=== PATIENT | male | born 2005 | race Caucasian/White ===

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

== ENCOUNTER 2025-01-12 14:00 | Emergency (ER) | payer SELFPAY ==
[2025-01-12 14:10] VITALS: BP 124/59; PULSE 83; RESP 16; TEMP 36.9; O2SAT 99
--- NOTE | 2025-01-12 14:18 | ED.URI ---
HPI - URI/Sore Throat General Chief Complaint: Upper Respiratory Infection Stated Complaint: Sore Throat/Cough Time Seen by Provider: 01/12/25 14:20 Source: patient, RN notes reviewed and old records reviewed Mode of arrival: ambulatory Limitations: no limitations History of Present Illness HPI Narrative: 19 year old male presents to express care with complaints of harsh nonproductive cough since Friday and some sore throat. Patient reports that he has had intermittent fevers with highest noted of 101F. Patient reports that he has taken some Ibuprofen and also has used his inhalers. He states that it has improved some but is continuing. Patient reports no acute shortness of breath does have history of asthma. Patient is afebrile today. MD elicited complaint: cough and sore throat Pertinent past history: asthma and other (tobacco use) Onset (ago): day(s) (5) Severity: moderate Able to tolerate fluids by mouth: No Treatments prior to arrival: other (inhaler) Related Data Home Medications ?Medication ?Instructions ?Recorded ?Confirmed ?Last Taken ?Type albuterol sulfate 90 mcg/actuation inhalation 01/12/25 Unknown History aerosol inhaler budesonide-formoterol HFA 160 inhalation 01/12/25 Unknown History mcg-4.5 mcg/actuation aerosol inhaler (Symbicort) epinephrine 0.3 mg/0.3 mL 01/12/25 Unknown History injection, auto-injector famotidine 20 mg tablet mg 01/12/25 Unknown History Allergies Allergy/AdvReac Type Severity Reaction Status Date / Time No Known Allergies Allergy Verified 01/12/25 14:01 Review of Systems Review of Systems: CONSTITUTIONAL: Positive malaise, some chills, sweats, or fever. EYES: Denies visual changes, redness, or discharge. ENT: Reports rhinorrhea, congestion, sinus pain,no otalgia and positive for sore throat. CARDIOVASCULAR: Denies chest pain, palpitations, or edema. RESPIRATORY: Reports harsh nonproductive cough.? Denies acute dyspnea. GASTROINTESTINAL: Denies abdominal pain, nausea, vomiting, diarrhea SKIN: Denies rash or itching. MUSCULOSKELETAL: Denies myalgia. NEUROLOGIC: Denies headache. All systems reviewed & are unremarkable except as noted in HPI and below PMFSH Past Medical History Medical History (Updated 01/14/25 @ 16:31 by Rose Carrington NP) History of streptococcal sore throat Asthma Social History Social History Smoking status: Current every day smoker Tobacco type: cigarettes Living arrangements: with family Gender identity (if verbalized by the patient): Male Comments At time of signature, agree with nursing past medical, surgical, social and family history. There is no relevant family history pertinent to the presenting complaint Exam Narrative: GENERAL: Well-appearing, well-nourished, and in no acute distress. HEAD: Normocephalic EYES: PERRLA, conjunctivae clear ENT: Nares clear, turbinates edematous and erythematous, clear discharge. Mucous membranes moist. TM pearly zamora with dull light reflex bilaterally; no tragal tenderness. Oropharynx erythematous without lesions. Tonsils red not enlarged and without exudate, no drooling, some hoarseness, no trismus, uvula midline. some post nasal drainge NECK: Supple. No lymphadenopathy CHEST: Clear to auscultation, breath sounds equal. No wheezing, rhonchi, rales, or stridor. No respiratory distress, speaks in full sentences.nonproductive cough no dyspnea reported or any tachypnea noted,SAO2 99% on room air HEART: Regular rate and rhythm. No murmur heard. SKIN: Warm, dry, no rash. NEURO: Alert and oriented x3. PSYCH: Normal mood and affect Course Course Emergency Course: Patient is aware of diagnosis, understands and agrees to treatment plan.? Anticipatory guidance given.? Patient agrees to follow-up as directed and is aware of reasons to seek care at the emergency department. Portions of this record may have been created with voice recognition software Level of Care: Express Care Visit Vital Signs Vital signs: Vital Signs Temperature 36.9 C 01/12/25 14:10 Pulse Rate 83 01/12/25 14:10 Respiratory Rate 16 01/12/25 14:10 Blood Pressure 124/59 L 01/12/25 14:10 Pulse Oximetry 99 01/12/25 14:10 Oxygen Delivery Room Air 01/12/25 14:10 Temperature 36.9 C 01/12/25 14:10 Pulse Rate 83 01/12/25 14:10 Respiratory Rate 16 01/12/25 14:10 Blood Pressure 124/59 L 01/12/25 14:10 Pulse Oximetry 99 01/12/25 14:10 Oxygen Delivery Room Air 01/12/25 14:10 Reviewed MDM - URI/Sore Throat MDM Narrative Medical decision making narrative: Differential diagnosis considered: Castillo virus, strep pharyngitis, allergic rhinitis, upper respiratory tract infection, sinusitis, rhinosinusitis, nasopharyngitis. viral pharyngitis, otitis media, otitis externa, pneumonia, bronchitis, viral cough syndrome, viral syndrome, and influenza.? Exam findings show no acute concerns or changes; patient is non-toxic appearing and is in no distress.? Patient is appropriate for outpatient treatment and follow-up. Medical Records Attestation: I reviewed the patient's medical records. Lab Data Attestation: I reviewed the patient's lab results. Lab results narrative: Influenza A negative Influenza B negative, COVID antigen negative, Strep screen negative, culture sent Labs: Lab Results 01/12/25 Range/Units 14:44 POC Influenza A Ag Negative (Negative) POC Influenza B Ag Negative (Negative) POC SARS CoV-2 Ag Negative (Negative) POC Grp A Strep Screen Negative (Negative) reviewed Critical Care Time Critical Care Time Critical Care Time: No Discharge Plan Discharge Clinical Impression: Upper respiratory virus Patient Disposition: Home, Self-Care Condition: Stable Instructions: Antibiotic Form, Upper Respiratory Infection (ED) Additional Instructions: INCREASE FLUIDS ESPECIALLY JUICES AND WATER [id number] COUGH AND COLD MEDICINE OF YOUR CHOICE FOR YOUR SYMPTOMS COUGH TABLETS DIRECTED FOR COUGH--DO NOT BITE, CHEW OR SUCK ON--SWALLOW WHOLE CONTINUE YOUR INHALER/NEBULIZER DIRECTED STEROIDS DIRECTED--TAKE WITH FOOD HEAT TO THE FACE 20-30 MINUTES 4-6 TIMES A DAY FOR PAIN SALT WATER GARGLES, THROAT LOZENGES OR THROAT SPRAYS DESIRED IF YOUR SYMPTOMS PERSIST, CHANGE OR WORSEN SIGNIFICANTLY BEFORE YOU CAN CONTACT YOUR PERSONAL PHYSICIAN THEN PLEASE, WITHOUT DELAY, GO TO THE EMERGENCY DEPARTMENT FOR FURTHER EVALUATION. FOLLOW-UP WITH PCP IN 7-10 DAYS OR SOONER IF NEEDED YOUR STREP TEST TODAY WAS NEGATIVE. A THROAT CULTURE WILL BE SENT TO THE LABORATORY FOR FURTHER TESTING. IF THE TEST IS POSITIVE, YOU WILL RECEIVE A PHONE CALL WITHIN 48 HOURS AND AN APPROPRIATE ANTIBIOTIC WILL BE INITIATED AT THAT TIME. Patient Language: East Timorese Prescriptions: New prednisone 20 mg tablet 40 mg PO DAILY 5 Days Qty: 10 0RF benzonatate 200 mg capsule 200 mg PO TID PRN (Reason: cough) Qty: 20 0RF No Action famotidine 20 mg tablet epinephrine 0.3 mg/0.3 mL auto-injector albuterol sulfate 90 mcg/actuation HFA aerosol inhaler INHALATION budesonide-formoterol [Symbicort] 160-4.5 mcg/actuation HFA aerosol inhaler INHALATION Follow-up/Referrals: UNKNOWN,DOCTOR [Primary Care Provider] - Stand Alone Forms: Work/School Release IP Time of Disposition: 15:09 Quality Cassius Coma Scale Eyes: Open Verbal: Oriented and Alert Motor: Follows Commands Cassius Coma Total Score: 15
[2025-01-12 14:46] LABS: EDCOVIDSCREEN Negative (Negative)
[2025-01-12 14:47] LABS: EDINFLUASCREEN Negative (Negative); EDINFLUBSCREEN Negative (Negative); EDSTREPNEGPOS1 Negative (Negative)
--- OUTSIDE RECORDS SUMMARY | 2025-01-12 15:55 | XMS_ITS | Encounter Summary ---
Author Organization [facility] Address [address] [place] [address] Phone Care Team Providers Care Manager Deli Name Role Phone Debora Black [facility] Primary Care Provi solomon Encounter Details Date Type Department Care Team (Late st Contact Info) Description 05/06/2024 Telephone [facility] Orthopaedic Surgery [address] [place] [phone] Myla Pop Social History Tobacco Use Types Packs/Day Years Used Date Smoking Tobacco: Every Day Cigarettes Smokeless Tobacco: Never Alcohol Use Standard Drinks/Week Comments Yes 0 (1 standard drink = 0.6 oz pur e alcohol) sometimes AUDIT-C Answer Date Recorded Q1: How often do you have a drink containing alc ohol? 2-4 times a month 04/23/2024 Q2: How many drinks containi ng alcohol do you have on a typical day when you are drinking? 1 or 2 04/23/2024 Q3: How often do you have si x or more drinks on one occasion? Never 04/23/2024 PHQ-2 Answer Date Recorded PHQ-2 Total Score (If total score is 3 or more points, staff should administer the PHQ-9) 0 04/23/2024 Personal Safety Answer Date Recorded Have you ever been in or are you currently in a harmful physical or emotional relationship or is someone making you feel afraid or unsafe? 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 Gender Identity Not on file Sexual Orientation Not on file documented as of this encounter Plan of Treatment Not on file documented as of this encounter Visit Diagnoses Not on filedocumented in this encounter Additional Health Concerns Infection Onset Date Last Indicated Resolved Time COVID: Suspected 09/26/2024 09/26/2024 09/26/2024 4:04 PM TERMINAL OPERATIONS MANAGER documented as of this encounter Care Teams Manager Deli Relationship Specialty Start Date End Date Debora Black DNP [address] [place] [id number] PCP - General Family Medicine 04/15/24 documented as of this encounter
--- OUTSIDE RECORDS SUMMARY | 2025-01-12 15:55 | XMS_ITS | Clinical Summary ---
Author Organization [place] [id number] Address [address] [place] [address] Care Team Providers Care Crime Scene Examiner Name Role Phone Debora Black [facility] Primary Care Provi solomon Allergies Active Allergy Reactions Criticality Noted Date Comments Hornet Venom Swelling Medium 07/29/2023 Medications ibuprofen (ADVIL,MOTRIN) 800 mg tablet Take 1 tablet (800 mg total) by mouth every 6 (six) hours as needed for pain Active lidocaine 5 % gel Apply a thin layer to left knee up to 6 times daily for pain 30 g 4 Active diclofenac sodium 3 % gel Apply 1 Application topically 2 (two) times a day 100 g 4 Active albuterol HFA (PROVENTIL HFA,VENTOLIN HFA,PROAIR HFA) 90 mcg/actuation inhalerIndicatio ns:Moderate persistent asthma without complication Inhale 2 puffs every 4 (four) hours as needed for wheezing or shortness of breath Through spacer 2 each 1 4 Active budesonide-formo teroL (Symbicort) 160-4.5 mcg/actuation inhalerIndicatio ns:Maintenance Therapy for Asthma Inhale 2 puffs 2 (two) times a day Rinse mouth with water after use. Do not swallow. 3 each 1 4 Active EPINEPHrine (EpiPen) 0.3 mg/0.3 mL auto-injection syringeIndicatio ns:Anaphylaxis Inject 0.3 mL (0.3 mg total) into the muscle as instructed as needed for anaphylaxis 2 each 4 Active famotidine (PEPCID) 20 mg tabletIndication s:Heartburn,Hear tburn Prevention Take 1 tablet (20 mg total) by mouth 2 (two) times a day 60 tablet 1 4 04/23/20 25 Active amoxicillin-clav ulanate (AUGMENTIN) 875-125 mg per tablet Take 1 tablet by mouth every 12 (twelve) hours 14 tablet 4 Active Active Problems Problem Noted Date Diagnosed Date Acute medial meniscus tear of left knee 05/21/20 24 Acute pain of left knee 04/23/2024 Assessment & Plan (04/23/2024 11:30 AM CDT): Managed by Ortho MRI scheduled for today Try diclofenac or lidocaine gel for pain as needed Keep leg elevated as much as you can Keep brace on Apply ice for swelling Mild intermittent asthma 04/23/2024 Gastroesophageal reflux disease without esophagi tis 04/23/2024 Assessment & Plan (04/23/2024 11:26 AM CDT): Famotidine refilled Recommend working on dietary changes F/u as needed 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 Screen for STD (sexually transmitted disease) Assessment & Plan (04/23/2024 11:32 AM CDT): Labs ordered Recommend using protection at all times History of COVID-19 12/18/2020 Overview (10/04/2021): Lost taste and smell, never tested; assumed positive Oppositional defiant disorder 07/02/2019 ADHD 07/02/2019 Asthma Assessment & Plan (04/23/2024 11:28 AM CDT): Uncontrolled Start Symbicort inhaler twice daily as prescribed Reviewed medication and side effects Use spacer device to deliver medication Albuterol refilled. Discussed overuse of albuterol Recommend all smoking cessation, aka STOP SMOKING. F/u in 1 month Resolved Problems Problem Noted Date Diagnosed Date Resolved Date Closed fracture of mandible ([facility]) 07/04/2014 04/23/2024 Overview (04/23/2024): Left jaw Immunizations Immunization Administration Dates Next Due DTaP 05/04/2010,03/17/2006,2005 ,2005 DTaP / Hep B / IPV 2005 HPV9 08/03/2019 Hep A, Ped Unspecified 05/04/2010 Hep A, Pediatric 08/01/2016 Hep B / HiB 03/17/2006,2005 Hep B Vaccine 03/17/2006,2005 HiB 2005 Hib (HbOC) 2005 IPV 05/04/2010,2005,2005 Influenza LAIV (Nasal) 2005 Influenza Nasal, Unspecified 2005 Influenza, Unspecified 08/17/2023(Deferred: Delphine ent Refused) MMR 05/04/2010,03/17/2006 Meningococcal MCV4P (Menactra) 10/30/2021,2015 Pneumococcal Conjugate 7-Valent 03/17/2006,09/17,2005,2005 Tdap 07/29/2023,08/01/2016 Varicella 05/04/2010,03/17/2006 Surgical History Surgery Date Site/Laterality Comments MANDIBLE FRACTURE SURGERY Medical History Medical History Date Comments Asthma Closed fracture of mandible ([facility] ([facility]) 06/17 Left jaw Family History Medical History Relation Name Comments Asthma Father COPD Father Diabetes Maternal Grandfather Heart disease Maternal Grandfather COPD Maternal Grandmother Lung cancer Maternal Grandmother Asthma Mother Asthma Other Breast cancer Paternal Grandmother Asthma Sister Relation Name Status Comments Father Maternal Grandfather Maternal Grandmother Mother Other Paternal Grandmother Sister Social History Tobacco Use Types Packs/Day Years Used Date Smoking Tobacco: Every Day Cigarettes Smokeless Tobacco: Never Tobacco Cessation:Ready to Q uit: Not Asked; Counseling Given: Not Answered Alcohol Use Standard Drinks/Week Comments Yes 0 [...] making you feel afraid or unsafe? 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 Gender Identity Not on file Sexual Orientation Not on file Obstetrics History Growth Chart Information Age Height Weight [id number] th Percentile BMI Percentile Head Circum Head Circum Percentile Date 19 years 180.3 cm (5' 11 ) 65.8 kg (145 lb) 15.76%* 2023 19 years 180.3 cm (5' 11 ) 65.8 kg (145 lb) 15.77%* 2023 19 years 180.3 cm (5' 10.98 ) 70 kg (154 lb 5.2 oz) 34.07%* 2023 19 years 180.3 cm (5' 11 ) 62.5 kg (137 lb 12.6 oz) 7.30%* 2023 19 years 180 cm (5' 10.87 ) 62 kg (136 lb 11 oz) 6.75%* 2023 19 years 180.3 cm (5' 11 ) 63.4 kg (139 lb 12.4 oz) 9.81%* 2023 19 years 180.3 cm (5' 11 ) 64.9 kg (143 lb) 14.86%* 2023 19 years 180.3 cm (5' 11 ) 63.5 kg (140 lb) 10.80%* 2023 19 years 180.3 cm (5' 11 ) 63.6 kg (140 lb 3.4 oz) 11.10%* 2023 19 years 180.3 cm (5' 11 ) 63.7 kg (140 lb 6.9 oz) 11.47%* 2023 18 years 180.3 cm (5' 11 ) 68 kg (150 lb) 29.71%* 2023 18 years 180.3 cm (5' 11 ) 65.3 kg (143 lb 15.4 oz) 19.09%* 2022 18 years 180.3 cm (5' 11 ) 68 kg (150 lb) 32.84%* 2022 18 years 180.3 cm (5' 11 ) 63.5 kg (140 lb) 15.97%* 2022 17 years 180.3 cm (5' 11 ) 63.8 kg (140 lb 10.5 oz) 18.84%* 2022 17 years 180.3 cm (5' 11 ) 63.5 kg (140 lb) 18.84%* 2022 17 years 68 kg (150 lb) 2021 17 years 180.3 cm (5' 11 ) 62.1 kg (136 lb 14.5 oz) 15.16%* 2021 17 years 60.6 kg (133 lb 9.6 oz) 2021 17 years 180.3 cm (5' 11 ) 56 kg (123 lb 7.3 oz) 1.86%* 2021 17 years 177.8 cm (5' 10 ) 59.7 kg (131 lb 9.8 oz) 13.37%* 2021 17 years 180.3 cm (5' 11 ) 59.1 kg (130 lb 4.7 oz) 6.90%* 2021 17 years 177.8 cm (5' 10 ) 60.5 kg (133 lb 6.1 oz) 18.46%* 2021 16 years 175.3 cm (5' 9 ) 61.7 kg (136 lb 0.4 oz) 33.49%* 2021 16 years 171 cm (5' 7.32 ) 56.6 kg (124 lb 12.5 oz) 26.34%* 2020 16 years 171 cm (5' 7.32 ) 56.6 kg (124 lb 12.5 oz) 27.31%* 2020 16 years 175.3 cm (5' 9 ) 59.5 kg (131 lb 2.8 oz) 27.91%* 2020 15 years 167.6 cm (5' 6 ) 60.9 kg (134 lb 4.2 oz) 69.91%* 2019 14 years 160 cm (5' 3 ) 50.7 kg (111 lb 12.4 oz) 50.69%* 2019 13 years 46.1 kg (101 lb 10.1 oz) 2018 13 years 154 cm (5' 0.63 ) 41.1 kg (90 lb 9.8 oz) 26.41%* 2017 12 years 37.6 kg (82 lb 14.3 oz) 2017 7 years 121.9 cm (4') 24.6 kg (54 lb 2 oz) 71.09%* 2011 * [facility] (Boys, 2-20 Years) Last Filed Vital Signs Vital Sign Reading Time Taken Comments Blood Pressure 133/67 09/27/2024 3:22 PM EDITORIAL CLERK Pulse 85 09/27/2024 3:22 PM EDITORIAL CLERK Temperature 38 C (100.4 F) 09/27/2024 3:22 PM EDITORIAL CLERK Respiratory Rate 18 09/27/2024 3:22 PM EDITORIAL CLERK Oxygen Saturation 98% 09/27/2024 3:22 PM EDITORIAL CLERK Inhaled Oxygen Concentration - - Weight 65.8 kg (145 lb) 09/27/2024 3:21 PM EDITORIAL CLERK Height 180.3 cm (5' 11 ) 09/27/2024 3:21 PM EDITORIAL CLERK Body Mass Index 20.22 09/27/2024 3:21 PM EDITORIAL CLERK Plan of Treatment Health Maintenance Due Date Last Done Comments Hepatitis C Screening 2005 Pneumococcal vaccine <65 (1 of 1 - PPSV23) 2011 03/17/2006, 2005, 2005, Additional history exists HPV Vaccines (2 - Male 2-dos e series) 02/01/2020 08/03/2019 Meningococcal B Vaccine (1 o f 2 - Standard) 2021 Regular Well Visit/Exam 18-64 2023 Influenza Vaccine (#1) 2024 2005, 2004 Depression Screening 04/23/2025 04/23/2024 DTaP/Tdap/Td Vaccine (8 - Td or Tdap) 07/29/2033 07/29/2023, 08/01/2016, 05/04/2010, Additional history exists Hepatitis B Screening Completed 03/17/2006 , 03/17/2006, 2005, Additional history exists Varicella Vaccines Completed 05/04/2010, 03/17/2006 Meningococcal Vaccine Completed 10/30/2021, 016 Insurance YOU[employer] YOU[employer]CARE [place] [employer] [place] [place] YOU[employer] YOU[employer]CARE [place] Care Teams Crime Scene Examiner Relationship Specialty Start Date End Date Debora Black DNP [address] [place] [address] PCP - General Family Medicine 04/15/24
--- OUTSIDE RECORDS SUMMARY | 2025-01-12 15:55 | XMS_ITS | Encounter Summary ---
Author Organization [facility] Address [address] [place] [address] Phone Care Team Providers Care Interventional Nurse Name Role Phone Debora Black [facility] Primary Care Provi solomon Encounter Details Date Type Department Care Team (Late st Contact Info) Description 05/06/[address] 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 Gender Identity Not on file Sexual Orientation Not on file documented as of this encounter Plan of Treatment Not on file documented as of this encounter Visit Diagnoses Not on filedocumented in this encounter Additional Health Concerns Infection Onset Date Last Indicated Resolved Time COVID: Suspected 09/26/2024 09/26/2024 09/26/2024 4:04 PM MUSICAL INSTRUMENT MAKER documented as of this encounter Care Teams Interventional Nurse Relationship Specialty Start Date End Date Debora Black DNP [address] [facility] [address] [place] [id number] PCP - General Family Medicine 04/15/24 documented as of this encounter
--- OUTSIDE RECORDS SUMMARY | 2025-01-12 15:55 | XMS_ITS | Clinical Summary ---
Author Organization [facility] Address [address] [place] [address] Phone Care Team Providers Care Sales Service Supervisor Name Role Phone Provider, None Primary Care Provider Unavailabl e Allergies No known active allergies Medications methylphenidate (CONCERTA) 27 MG Tablet Controlled Release Take 27 mg by mouth every morning. Active methylphenidate (RITALIN) 5 MG Tablet Take 5 mg by mouth daily. Active valproic acid (DEPAKENE) 250 MG Capsule Take 250 mg by mouth 2 times daily. Active HYDROcodone-acet aminophen (NORCO) 5-325 MG Tablet Take 1 Tab by mouth every 6 hours as needed for Pain. 20 Tab 0 05/16/2016 Active ondansetron (ZOFRAN-ODT) 4 MG TABLET DISPERSIBLE Take 1 Tablet by mouth every 8 hours as needed for Nausea - 1st line. 10 Tablet 07/24/2024 Active Social History Tobacco Use Types Packs/Day Years Used Date Smoking Tobacco: Passive Smo ke Exposure - Never Smoker Alcohol Use Standard Drinks/Week Comments No 0 (1 standard drink = 0.6 oz pur e alcohol) Sex and Gender Information Value Date Recorded Sex Assigned at Not on file Legal Sex Male 1:43 AM CDT Gender Identity Not on file Sexual Orientation Not on file Last Filed Vital Signs Vital Sign Reading Time Taken Comments Blood Pressure 150/78 07/24/2024 7:25 PM CDT Pulse 64 07/24/2024 7:25 PM CDT Temperature 36.8 C (98.3 F) 07/24/2024 6:35 PM CDT Respiratory Rate 16 07/24/2024 7:25 PM CDT Oxygen Saturation 98% 07/24/2024 7:25 PM CDT Inhaled Oxygen Concentration - - Weight 64.4 kg (142 lb) 07/24/2024 6:35 PM CDT Height 180.3 cm (5' 11 ) 07/24/2024 6:35 PM CDT Body Mass Index 19.8 07/24/2024 6:35 PM CDT Plan of Treatment Health Maintenance Due Date Last Done Comments Hepatitis C Virus (HCV) Screening 2005 TdaP Immunization 2005 Human Papillomavirus (HPV) Immunization (1 - Male 3-dose series) 2020 Meningococcal B Immunization (1 of 2 - Standard) 2021 Hepatitis B Immunization (1 of 3 - 19+ 3-dose series) 2024 Influenza Immunization (#1) 2024 SARS-COV-2 Immunization (1 - season) 2024 Respiratory Syncytial Virus (RSV) Immunization (Adult) (1 - 1-dose 75+ series) 2080 Meningococcal Immunization (ACWY) Aged Out No longer eligible based on patient's age to complete this topic Pneumococcal Immunization Combined Aged Out No longer eligible based on patient's age to complete this topic Rotavirus Immunization Aged Out No lo nger eligible based on patient's age to complete this topic Insurance MEDICAID [facility] [employer] Care Teams Sales Service Supervisor Relationship Specialty Start Date End Date Provider, None [place] PCP - General 05/16/16
--- OUTSIDE RECORDS SUMMARY | 2025-01-12 15:55 | XMS_ITS | Referral Summary ---
Author Organization [place] [id number] [facility] Address [address] [place] [address] Care Team Providers Care Supervisor Cook Room Name Role Phone Debora Black [facility] Primary Care Provi solomon Allergies Active Allergy [...] Date Resolved Date Closed fracture of mandible ([facility]) 07/04/2014 04/23/2024 Overview (04/23/2024): Left jaw Immunizations [...] Conjugate 7-Valent 03/17/2006,09/17,2005,2005 Tdap 07/29/2023,08/01/2016 Varicella 05/04/2010,03/17/2006 Social History Tobacco Use Types Packs/Day Years [...] on file Legal Sex Male 4:18 AM DIGITAL ASSOCIATE MEDIA DIRECTOR Gender Identity Not on file Sexual Orientation Not on file Last Filed Vital Signs Vital Sign Reading Time Taken Comments Blood Pressure 133/67 09/27/2024 3:22 PM DIGITAL ASSOCIATE MEDIA DIRECTOR Pulse 85 09/27/2024 3:22 PM DIGITAL ASSOCIATE MEDIA DIRECTOR Temperature 38 C (100.4 F) 09/27/2024 3:22 PM DIGITAL ASSOCIATE MEDIA DIRECTOR Respiratory Rate 18 09/27/2024 3:22 PM DIGITAL ASSOCIATE MEDIA DIRECTOR Oxygen Saturation 98% 09/27/2024 3:22 PM DIGITAL ASSOCIATE MEDIA DIRECTOR Inhaled Oxygen Concentration - - Weight 65.8 kg (145 lb) 09/27/2024 3:21 PM DIGITAL ASSOCIATE MEDIA DIRECTOR Height 180.3 cm (5' 11 ) 09/27/2024 3:21 PM DIGITAL ASSOCIATE MEDIA DIRECTOR Body Mass Index 20.22 09/27/2024 3:21 PM DIGITAL ASSOCIATE MEDIA DIRECTOR Plan of Treatment Not on file [place] [id number] [place] [place] Care Teams Supervisor Cook Room Relationship Specialty Start Date End Date Debora Black DNP [address] [place] [id number] PCP - General Family Medicine 04/15/24
== END 2025-01-12 15:15 | disposition home or self-care (01) ==
PROVIDERS: Emergency Provider Registered Nurse
DX: J06.9 Acute upper respiratory infection, unspecified (principal); Z20.822 Contact with and (suspected) exposure to COVID-19; J45.909 Unspecified asthma, uncomplicated; F17.210 Nicotine dependence, cigarettes, uncomplicated
CPT/HCPCS: 87081; 87426; 87804; 87880; 99213; G0463

== ENCOUNTER 2025-02-17 18:54 | Emergency (ER) | payer SELFPAY ==
--- OUTSIDE RECORDS SUMMARY | 2025-02-17 18:56 | XMS_ITS | Clinical Summary ---
Author Organization [facility] Address [address] [place] [address] Phone Care Team Providers Care Theater Projectionist Name Role Phone Provider, None Primary Care Provider Unavailabl e Allergies Active Allergy Reactions Criticality Noted Date Comments Methylprednisolone Rash 01/14/2025 Medications methylphenidate (CONCERTA) 27 MG Tablet Controlled [...] as needed for Pain. 20 Tab 0 6 Active ondansetron (ZOFRAN-ODT) 4 MG TABLET DISPERSIBLE Take 1 Tablet by mouth every 8 hours as needed for Nausea - 1st line. 10 Tablet 4 Active ibuprofen (MOTRIN) 600 MG TabletIndication s:Pain Take 1 Tablet by mouth every 6 hours as needed for Moderate or more severe pain. Indications: Pain 30 Tablet 5 Active traMADol (ULTRAM) 50 MG TabletIndication s:Pain Take 1 Tablet by mouth every 8 hours as needed for Moderate or more severe pain. Indications: Pain 12 Tablet 5 Active Encounters Date Type Department Care Team Description 01/14/2025 8:38 PM CHIMNEY SWEEPER - 01/14/2025 10:02 PM CHIMNEY SWEEPER Emergency [facility] Emergency [address] [place] [address] Ben Chavira, PAC Right ankle sprain Discharge Disposition: Discharged to home or Selfcare 01/14/2025 Travel from Last 3 Months Social History Tobacco Use Types Packs/Day Years [...] Sign Reading Time Taken Comments Blood Pressure 123/68 01/14/2025 10:00 PM CHIMNEY SWEEPER Pulse 68 01/14/2025 10:00 PM CHIMNEY SWEEPER Temperature 36.6 C (97.8 F) 01/14/2025 8:21 PM CHIMNEY SWEEPER Respiratory Rate 18 01/14/2025 10:00 PM CHIMNEY SWEEPER Oxygen Saturation 99% 01/14/2025 10:00 PM CHIMNEY SWEEPER Inhaled Oxygen Concentration - - Weight 69.9 kg (154 lb) 01/14/2025 8:21 PM CHIMNEY SWEEPER Height 170.2 cm (5' 7 ) 01/14/2025 8:21 PM CHIMNEY SWEEPER Body Mass Index 24.12 01/14/2025 8:21 PM CHIMNEY SWEEPER Plan of Treatment Health Maintenance Due Date Last Done Comments Hepatitis C Virus (HCV) Screening 2005 Human Papillomavirus (HPV) Immunization (2 - Male 2-dose series) 02/01/2020 08/03/2019 Meningococcal B Immunization (1 of 2 - Standard) 2021 Influenza Immunization (#1) 2024 2005 SARS-COV-2 Immunization ( season) 2024 Respiratory Syncytial Virus (RSV) Immunization (Adult) (1 - 1-dose 75+ series) 2080 Hepatitis B Immunization Completed 006, 03/17/2006, 2005, Additional history exists Pneumococcal Immunization Combined Aged Out 03/17/2006, 2005, 2005, Additional history exists No longer eligible based on patient's age to complete this topic Measles Mumps Rubella (MMR) Immunization Discontinued 05/04/2010, 03/17/2006 Polio (IPV) Immunization Discontinued 010, 2005, 2005, Additional history exists Varicella Immunization Discontinued 05/04/2010, 2005 Hepatitis A Immunization Discontinued 08/01/2016, 04/17 Meningococcal Immunization (ACWY) Completed 10/30/2021, 08/01/2016 DTaP/Tdap/Td Immunization Discontinued 2022, 08/01/2016, 05/04/2010, Additional history exists TdaP Immunization Completed 07/29/2023, 08/01/2016 Rotavirus Immunization Aged Out No lo nger eligible based on patient's age to complete this topic Procedures Procedure Name Priority Date/Time Associated Diagnosis Comments XR SHOULDER COMPLETE LEFT STAT 01/14/2025 8:43 PM CHIMNEY SWEEPER XR ANKLE 3 OR MORE VIEWS RIGHT STAT 01/14/2025 8:37 PM CHIMNEY SWEEPER from Last 3 Months Results * XR SHOULDER COMPLETE LEFT (01/14/2025 8:43 PM CHIMNEY SWEEPER) Anatomical Region Laterality Modality UPPER EXTREMITY, shoulder Left Digita l Radiography 01/14/2025 9:41 PM CHIMNEY SWEEPER Impressions 01/14/2025 9:44 PM CHIMNEY SWEEPER IMPRESSION: No fracture or malalignment identified. Narrative 01/14/2025 9:44 PM CHIMNEY SWEEPER EXAM DESCRIPTION: XR SHOULDER COMPLETE LEFT REASON FOR STUDY: pt c/o RT ankle and LT shoulder after running with his brother last night through a yard. pt adan any fall and no hx of surgery TECHNIQUE: Internal rotation, external rotation, and Y views of the shoulder. COMPARISON: None FINDINGS: BONES/JOINTS: No fracture, malalignment, or suspicious osseous lesion is identified. Glenohumeral and acromioclavicular joints unremarkable. Subacromial space and coracoclavicular distance appear normal. Visualized ribs and spine intact. SOFT TISSUES: Unremarkable. THIS IS AN ELECTRONICALLY VERIFIED FINAL REPORT 01/14/2025 9:41 PM - Electronically signed by Nick Short M.D. AR: JORGE Report ID: [id number] Reading Location: [id number] Procedure Note Nick Short MD - 01/14/2025 EXAM DESCRIPTION: XR SHOULDER COMPLETE LEFT REASON FOR STUDY: pt c/o RT ankle and LT shoulder after running with his brother last night through a yard. pt adan any fall and no hx of surgery TECHNIQUE: Internal rotation, external rotation, and Y views of the shoulder. COMPARISON: None FINDINGS: BONES/JOINTS: No fracture, malalignment, or suspicious osseous lesion is identified. Glenohumeral and acromioclavicular joints unremarkable. Subacromial space and coracoclavicular distance appear normal. Visualized ribs and spine intact. SOFT TISSUES: Unremarkable. THIS IS AN ELECTRONICALLY VERIFIED FINAL REPORT 01/14/2025 9:41 PM - Electronically signed by Nick Short M.D. AR: JORGE Report ID: [id number] Reading Location: [place] [id number] IMPRESSION: No fracture or malalignment identified. Ben Quinn Fan [facility] IMG DIAGNOSTIC ORDER SOPHIE Final Result * XR ANKLE 3 OR MORE VIEWS RIGHT (01/14/2025 8:37 PM CHIMNEY SWEEPER) Anatomical Region Laterality Modality LOWER EXTREMITY, ankle Right Digital R adiography 01/14/2025 9:40 PM CHIMNEY SWEEPER Addenda Addendum by Nick Short MD on 01/24/2025 1:09 AM CDT ADDENDUM REPORT: ADDENDUM: This addendum report supersedes the original report dated 01/14/2025 Reason for Study should read: Pain in left shoulder and right ankle after running through a yard with his brother. No known injury. Technique should include: 4 views of left shoulder was obtained. END OF ADDENDUM REPORT EXAM DESCRIPTION: XR ANKLE 3 OR MORE VIEWS RIGHT REASON FOR STUDY: pt c/o RT ankle and LT shoulder after running with his brother last night through a yard. pt adan any fall and no hx of surgery TECHNIQUE: Frontal, oblique, and lateral views of the right ankle . COMPARISON: None FINDINGS: BONES/JOINTS: No fracture, malalignment, or suspicious osseous lesion is identified. Joint spaces are preserved. SOFT TISSUES: Unremarkable. IMPRESSION: No fracture or malalignment identified. THIS IS AN ELECTRONICALLY VERIFIED FINAL REPORT 01/14/2025 9:40 PM - Electronically signed by Nick Short M.D. AR: JORGE Report ID: [id number] Reading Location: [id number] THIS IS AN ELECTRONICALLY VERIFIED FINAL REPORT 01/24/2025 1:06 AM Addendum Electronically signed by Nick Short M.D. AR: JORGE Report ID: [id number] Reading Location: [id number] Impressions 01/14/2025 9:43 PM CHIMNEY SWEEPER IMPRESSION: No fracture or malalignment identified. Narrative 01/14/2025 9:43 PM CHIMNEY SWEEPER EXAM DESCRIPTION: XR ANKLE 3 OR MORE VIEWS RIGHT REASON FOR STUDY: pt c/o RT ankle and LT shoulder after running with his brother last night through a yard. pt adan any fall and no hx of surgery TECHNIQUE: Frontal, oblique, and lateral views of the right ankle . COMPARISON: None FINDINGS: BONES/JOINTS: No fracture, malalignment, or suspicious osseous lesion is identified. Joint spaces are preserved. SOFT TISSUES: Unremarkable. THIS IS AN ELECTRONICALLY VERIFIED FINAL REPORT 01/14/2025 9:40 PM - Electronically signed by Nick Short M.D. AR: JORGE Report ID: [id number] Reading Location: [id number] Procedure Note Nick Short MD - 01/14/2025 EXAM DESCRIPTION: XR ANKLE 3 OR MORE VIEWS RIGHT REASON FOR STUDY: pt c/o RT ankle and LT shoulder after running with his brother last night through a yard. pt adan any fall and no hx of surgery TECHNIQUE: Frontal, oblique, and lateral views of the right ankle . COMPARISON: None FINDINGS: BONES/JOINTS: No fracture, malalignment, or suspicious osseous lesion is identified. Joint spaces are preserved. SOFT TISSUES: Unremarkable. THIS IS AN ELECTRONICALLY VERIFIED FINAL REPORT 01/14/2025 9:40 PM - Electronically signed by Nick Short M.D. AR: JORGE Report ID: [id number] Reading Location: [id number] IMPRESSION: No fracture or malalignment identified. Ben Chavira PAC IMG DIAGNOSTIC ORDER SOPHIE Edited Result - Final from Last 3 Months Care Teams Theater Projectionist Relationship Specialty Start Date End Date Provider, None [place] PCP - General 05/16/16
--- OUTSIDE RECORDS SUMMARY | 2025-02-17 18:56 | XMS_ITS | Referral Summary ---
Author Organization [place] [id number] [facility] Address [address] [place] [address] Care Team Providers Care Bilingual Inside Sales Representative Name Role Phone Debora Black [facility] Primary Care Provi solomon Allergies Active Allergy [...] Date Resolved Date Closed fracture of mandible 07/04/2014 04/23/2024 Overview (04/23/2024): Left jaw Immunizations [...] on file Legal Sex Male 4:18 AM ASPHALT SCREED OPERATOR Gender Identity Not on file Sexual Orientation Not on file Last Filed Vital Signs Vital Sign Reading Time Taken Comments Blood Pressure 133/67 09/27/2024 3:22 PM ASPHALT SCREED OPERATOR Pulse 85 09/27/2024 3:22 PM ASPHALT SCREED OPERATOR Temperature 38 C (100.4 F) 09/27/2024 3:22 PM ASPHALT SCREED OPERATOR Respiratory Rate 18 09/27/2024 3:22 PM ASPHALT SCREED OPERATOR Oxygen Saturation 98% 09/27/2024 3:22 PM ASPHALT SCREED OPERATOR Inhaled Oxygen Concentration - - Weight 65.8 kg (145 lb) 09/27/2024 3:21 PM ASPHALT SCREED OPERATOR Height 180.3 cm (5' 11 ) 09/27/2024 3:21 PM ASPHALT SCREED OPERATOR Body Mass Index 20.22 09/27/2024 3:21 PM ASPHALT SCREED OPERATOR Plan of Treatment Not on file Insurance [place] [id number] [place] Care Teams Bilingual Inside Sales Representative Relationship Specialty Start Date End Date Debora Black DNP [address] [place], [place] [id number] PCP - General Family Medicine 04/15/24
--- OUTSIDE RECORDS SUMMARY | 2025-02-17 18:56 | XMS_ITS | Encounter Summary ---
Author Organization [facility] Address [address] [place] [address] Phone Care Team Providers Care Tool Distributor Name Role Phone Debora Black [facility] Primary Care Provi solomon Encounter Details Date Type Department Care Team (Late st Contact Info) Description 05/06/2024 Documentation [facility] Orthopaedic Surgery [address] [place] [phone] Myla Pop Social History Tobacco Use Types [...] on file Legal Sex Male 4:18 AM GUEST ASSOCIATE Gender Identity Not on file Sexual Orientation Not on file documented as of this encounter Plan of Treatment Not on file documented as of this encounter Visit Diagnoses Not on filedocumented in this encounter Additional Health Concerns Infection Onset Date Last Indicated Resolved Time COVID: Suspected 09/26/2024 09/26/2024 09/26/2024 4:04 PM GUEST ASSOCIATE documented as of this encounter Care Teams Tool Distributor Relationship Specialty Start Date End Date Debora Black DNP [address] [place] [address] [place] [id number] PCP - General Family Medicine 04/15/24 documented as of this encounter
--- OUTSIDE RECORDS SUMMARY | 2025-02-17 18:56 | XMS_ITS | Encounter Summary ---
Author Organization [facility] Address [address] [place] [address] Phone Care Team Providers Care Social Work Lecturer Name Role Phone Debora Black [facility] Primary Care Provi solomon Encounter Details Date Type Department Care Team (Late st Contact Info) Description 05/06/2024 Telephone [facility] Orthopaedic Surgery [address] [place] [phone] Myla Pop Social History Tobacco Use [...] on file Legal Sex Male 4:18 AM INTERNAL SALESPERSON Gender Identity Not on file Sexual Orientation Not on file documented as of this encounter Plan of Treatment Not on file documented as of this encounter Visit Diagnoses Not on filedocumented in this encounter Additional Health Concerns Infection Onset Date Last Indicated Resolved Time COVID: Suspected 09/26/2024 09/26/2024 09/26/2024 4:04 PM INTERNAL SALESPERSON documented as of this encounter Care Teams Social Work Lecturer Relationship Specialty Start Date End Date Debora Black DNP [address] [place] [address] [place] [phone] PCP - General Family Medicine 04/15/24 documented as of this encounter
--- OUTSIDE RECORDS SUMMARY | 2025-02-17 18:57 | XMS_ITS | Clinical Summary ---
Author Organization [place] [id number] [facility] Address [address] [place] [address] Care Team Providers Care Paper Bundler Name Role Phone Debora Black [facility] Primary Care Provi solomon Allergies Active Allergy [...] Date Comments Asthma Closed fracture of mandible (HCC) 07/04/2014 Left jaw Family History Medical History Relation [...] on file Legal Sex Male 4:18 AM FIELD REP Gender Identity Not on file Sexual Orientation Not on file Obstetrics History Growth Chart Information Age Height Weight [id number] th Percentile BMI Percentile Head Circum Head [...] (54 lb 2 oz) 71.09%* 2011 * [facility] (Boys, 2-20 Years) Last Filed Vital Signs Vital Sign Reading Time Taken Comments Blood Pressure 133/67 09/27/2024 3:22 PM FIELD REP Pulse 85 09/27/2024 3:22 PM FIELD REP Temperature 38 C (100.4 F) 09/27/2024 3:22 PM FIELD REP Respiratory Rate 18 09/27/2024 3:22 PM FIELD REP Oxygen Saturation 98% 09/27/2024 3:22 PM FIELD REP Inhaled Oxygen Concentration - - Weight 65.8 kg (145 lb) 09/27/2024 3:21 PM FIELD REP Height 180.3 cm (5' 11 ) 09/27/2024 3:21 PM FIELD REP Body Mass Index 20.22 09/27/2024 3:21 PM FIELD REP Plan of Treatment Health Maintenance Due Date [...] Meningococcal Vaccine Completed 10/30/2021, 016 Insurance [place] Care Teams Paper Bundler Relationship Specialty Start Date End Date Debora Black DNP [address] [place] [address] [place] [phone] PCP - General Family Medicine 04/15/24
[2025-02-17 19:16] VITALS: BP 122/71; PULSE 90; RESP 16; TEMP 37; O2SAT 98
--- NOTE | 2025-02-17 19:32 | ED_ITS ---
HPI - URI/Sore Throat General Chief Complaint: Upper Respiratory Infection Stated Complaint: Congestion/Cough Time Seen by Provider: 02/17/25 19:32 Source: patient, RN notes reviewed and old records reviewed Mode of arrival: ambulatory Limitations: no limitations History of Present Illness HPI Narrative: 19-year-old male presents to the [facility] with runny nose, sinus congestion and cough that started yesterday. Has an allergy to cats, was exposed to cats fall cleaning out a garage Patient states his sinuses or dripping down the back of his throat. No treatment prior to arrival. Symptoms started yesterday. No fever. Patient in no acute distress. Maintaining own secretions. Onset (ago): day(s) (1) Related Data Home Medications ?Medication ?Instructions ?Recorded ?Confirmed ?Last Taken ?Type albuterol sulfate 90 mcg/actuation inhalation 01/12/25 Unknown History aerosol inhaler budesonide-formoterol HFA 160 inhalation 01/12/25 Unknown History mcg-4.5 mcg/actuation aerosol inhaler (Symbicort) epinephrine 0.3 mg/0.3 mL 01/12/25 Unknown History injection, auto-injector famotidine 20 mg tablet mg 01/12/25 Unknown History Allergies Allergy/AdvReac Type Severity Reaction Status Date / Time No Known Allergies Allergy Verified 01/12/25 14:01 Review of Systems Review of Systems: All systems reviewed & are unremarkable except as noted in HPI and below Constitutional: Constitutional: Reports no additional constitutional complaints ENT: Reports as per HPI Cardiovascular: Cardiovascular: Reports no additional cardiovascular complaints, Denies chest pain and Denies dyspnea Respiratory: Respiratory: Reports no additional respiratory complaints, Denies chest congestion, Denies cough and Denies dyspnea Musculoskeletal: Musculoskeletal: Reports no additional musculoskeletal complaints Integumentary/Breasts: Skin/Breast: Reports system reviewed and no additional complaints, except as docu [facility] Past Medical History Medical History History of streptococcal sore throat Asthma Social History Social History Smoking status: Current every day smoker Tobacco type: cigarettes Living arrangements: with family Gender identity (if verbalized by the patient): Male Comments At the time of my signature, I reviewed and agree with the nursing past medical, surgical, social, and family history. There is no relevant family history pertinent to the patient complaint. Exam Const: General: cooperative, healthy appearing, comfortable, no acute distress, well developed, alert and well nourished Nutritional Appearance: well nourished Orientation/consciousness: patient oriented x3 Limitations: no limitations HENMT: Head: normal to inspection Ears: hearing grossly normal bilaterally, external ears normal, TM's normal bilaterally, EAC's normal, mastoids normal and no periauricular adenopathy Face/Nose/Sinus: Normal external nose present, Normal nares present, normal facial exam, sinuses nontender and face symmetric Mouth: Yes Normal oral and palatal mucosa present, Yes lip normal, Yes tongue normal and Yes moist mucous membranes Throat: posterior oropharynx normal, uvula midline, postnasal drainage and no uvular edema Eyes: General: appearance normal, both eyes and all related structures Alignment and Position: alignment normal Neck: Neck: normal visual inspection, full ROM, no lymphadenopathy and no meningeal signs Chest: Chest palpation & inspection: normal inspection of the chest Resp: Effort & Inspection: normal respiratory effort and able to speak in complete sentences Auscultation: clear to auscultation bilaterally, no crackles, no rales, no rhonchi and no wheezes Cardio: Rate: regular rate Skin: General skin exam: normal color and no rashes or lesions noted Neuro: General: patient oriented x3, gait normal, moves all extremities and no meningeal signs Cognition (Neuro): normal cognition Speech: normal speech Gait exam (Neuro): Normal gait present Extrem: General: normal to inspection, full ROM, capillary refill normal and normal gait Psych: Appearance: grossly normal and well kempt Mental Status: mental status grossly normal Speech and movement: Normal speech and movement present and Clear speech present Affect: normal affect Attitude: cooperative Course Course Level of Care: Express Care Visit Vital Signs Vital signs: Vital Signs Oxygen Delivery Room Air 02/17/25 19:10 Temperature 98.6 F 02/17/25 19:16 Pulse Rate 90 02/17/25 19:16 Respiratory Rate 16 02/17/25 19:16 Blood Pressure 122/71 02/17/25 19:16 Pulse Oximetry 98 02/17/25 19:16 Oxygen Delivery Room Air 02/17/25 19:16 Reviewed MDM - URI/Sore Throat MDM Narrative Medical decision making narrative: Patient sitting in exam room. Nontoxic, vitals stable. Patient in no acute distress. Patient presents with postnasal drainage, nasal congestion and cough for 1 day. No treatment prior to arrival. Patient also presents concerns for allergic to cats. Postnasal drainage noted. No other acute findings noted on exam. Patient appropriate for outpatient treatment with close follow-up Discharge instructions reviewed with patient, as well as provided in writing per nursing staff. The instructions also include specific and strict return/GO TO THE ER as well as f/u information. All questions have been answered, and the patient deny any further questions with discharge and discharge plan. Some parts of this dictation were generated by voice recognition software and may contain typographical and/or grammatical inaccuracies. Differential Diagnosis Differential diagnosis: Likely upper respiratory infection, otitis media, sinusitis, viral infection and other (Allergic rhinitis) Critical Care Time Critical Care Time Critical Care Time: No Discharge Plan Discharge Clinical Impression: Cough Qualifiers: Cough type: acute Qualified Code(s): R05.1 - Acute cough Allergic rhinitis Qualifiers: Allergic rhinitis trigger: animal hair and dander Qualified Code(s): J30.81 - Allergic rhinitis due to animal (cat) (dog) hair and dander Patient Disposition: Home, Self-Care Condition: Stable Instructions: Antibiotic Form, Allergies (ED), Postnasal Drip (DC) Additional Instructions: It is very important to treat your symptoms. Drink plenty of water, Gatorade, Pedialyte, ice pops or Jell-O. -Alternate Tylenol and Motrin per package directions for fever or pain. You can alternate every 4 hours -Antihistamine medication such as Zyrtec/Claritin/Casi during the day can help improve symptoms. -doing daily nasal irrigations can help relieve pressure your sinuses. Things like a Neti pot -Use Flonase twice a day for 5 days then daily to help reduce the inflammation and dry up your sinuses. -You can also use Mucinex. Be sure to drink plenty of water with this medication at least 8 ounces with every dose and it is important to drink 8 to 10 glasses of water per day. Water is a natural decongestant -Eat and drink things that are easy to swallow, like tea or soup, or popsicles. -Oral rinses such as: Salt water gargles and/or may use topical anesthetic (eg. Chloraseptic spray) or lozenges to relieve dryness or throat pain). -Frequent hand washing or hand benefits sales consultant is one of the best ways to prevent spread of infection. -Using a vaporizer or humidifier at night will also help thin secretions and help with coughing up phlegm. -Follow up with primary care provider in 7-10 days if condition is not improving - For new or worsening symptoms go directly to the nearest ER Patient Language: Mongolian Prescriptions: New fluticasone propionate [24 Hour Allergy Relief] 50 mcg/actuation spray,suspension 2 spray intranasal DAILY Qty: 16 0RF Rx Instructions: administer into each nostril prednisone 20 mg tablet See Rx Instructions .Route .COMPLEX Qty: 9 0RF Rx Instructions: Take 40 mg daily for 3 days, 20 mg daily for 3 days No Action famotidine 20 mg tablet epinephrine 0.3 mg/0.3 mL auto-injector albuterol sulfate 90 mcg/actuation HFA aerosol inhaler INHALATION budesonide-formoterol [Symbicort] 160-4.5 mcg/actuation HFA aerosol inhaler INHALATION prednisone 20 mg tablet 40 mg PO DAILY 5 Days Qty: 10 0RF benzonatate 200 mg capsule 200 mg PO TID PRN (Reason: cough) Qty: 20 0RF Follow-up/Referrals: UNKNOWN,DOCTOR [Primary Care Provider] - Stand Alone Forms: Work/School Release IP Time of Disposition: 19:41
== END 2025-02-17 19:55 | disposition home or self-care (01) ==
PROVIDERS: Emergency Provider Nurse Practitioner
DX: R05.1 Acute cough (principal); J30.81 Allergic rhinitis due to animal (cat) (dog) hair and dander; F17.210 Nicotine dependence, cigarettes, uncomplicated; J45.909 Unspecified asthma, uncomplicated
CPT/HCPCS: 99213; G0463

== ENCOUNTER 2025-08-26 11:47 | Emergency (ER) | payer OTHER, SELFPAY ==
[2025-08-26 11:53] VITALS: BP 141/66; PULSE 63; RESP 18; TEMP 36.6; O2SAT 100
[2025-08-26 12:17] LABS: EDUAAPPEAR Clear; EDUABILI Negative (Negative); EDUABLOOD Trace (Negative); EDUACOLOR1 Yellow; EDUAGLUCOSE Negative (Negative); EDUAKETONE Negative (Negative); EDUALEUKO Negative (Negative); EDUANITRATE Negative (Negative); EDUAPH 8.5; EDUAPROTEIN Negative (Negative); EDUASPGRAVITY 1.020; EDUAUROBILI 0.2
--- NOTE | 2025-08-26 12:29 | ED.MALEGU ---
HPI - Male Genitourinary General Chief complaint: Urogenital-Male Stated complaint: STD test Time Seen by Provider: 08/26/25 12:10 Source: patient and RN notes reviewed Mode of arrival: ambulatory Limitations: no limitations History of Present Illness HPI Narrative: 20-year-old male presents Express Care complaining of concern of STD. Patient reports time penile discharge, intermittent dysuria, frequency for the last proximally 3-4 weeks. Patient reports he had unprotected sex with someone who tested positive for chlamydia, he said she said she was treated prior to the having intercourse. Patient reports exposure back in June of this year. Patient denies any abdominal pain, back pain, flank pain, nausea vomiting diarrhea fevers, chest pain, shortness of breath or any other symptoms. Related Data Home Medications ?Medication ?Instructions ?Recorded ?Confirmed ?Last Taken ?Type epinephrine 0.3 mg/0.3 mL 01/12/25 Unknown History injection, auto-injector Allergies Allergy/AdvReac Type Severity Reaction Status Date / Time No Known Allergies Allergy Verified 08/26/25 11:52 Review of Systems Review of Systems: CONSTITUTIONAL: Denies fever, chills, or sweats. EYES: Denies visual changes, redness, or discharge. ENT: Denies rhinorrhea, congestion, sore throat, or otalgia. CARDIOVASCULAR: Denies chest pain, palpitations, or edema. RESPIRATORY: Denies cough or dyspnea. GASTROINTESTINAL: Denies abdominal pain, nausea, vomiting, or diarrhea. GENITOURINARY: Positive for dysuria, frequency, penile discharge. Negative for hematuria , painful erections, painful ejaculation, testicular or scrotal pain/swelling. SKIN: Denies rash or itching. MUSCULOSKELETAL: Denies back pain, joint pain, or myalgia. NEUROLOGIC: Denies headache, numbness, or weakness. PSYCHIATRIC: Denies anxiety or depression. All other systems reviewed are negative, except as documented in HPI. [facility] Past Medical History Medical History History of streptococcal sore throat Asthma Social History Social History Smoking status: Current every day smoker Tobacco type: cigarettes Living arrangements: with family Gender identity (if verbalized by the patient): Male Comments At the time of my signature, I reviewed and agree with the nursing past medical, surgical, social, and family history. There is no relevant family history pertinent to the patient complaint. Exam Narrative: GENERAL: This is a well-nourished, well-developed adult, in no apparent distress. They are non ill-appearing, nontoxic appearing. HEAD: normocephalic, atraumatic. EYES: Sclera clear/white. Conjunctiva normal. Vision is grossly intact. Extraocular movements intact EARS: External ears normal, Hearing grossly intact. NOSE: External nose normal THROAT: Mucous membranes moist, NECK: Neck supple, CARDIOVASCULAR: Regular rate and rhythm RESPIRATORY: Respiratory rate normal, respiratory effort nonlabored, no respiratory distress GENITOURINARY: Patient declined genital exam. SKIN: warm, Dry, intact with no suspicious lesions or rash, good texture and turgor. NEURO: awake, alert, and oriented to person, place and time. There were no obvious focal neurologic abnormalities. EXTREMITIES: No joint tenderness, effusion, or edema noted. Course Course Emergency Course: Portions of this record may have been created with voice recognition software Level of Care: Express Care Visit Vital Signs Vital signs: Vital Signs Temperature 98 F 08/26/25 11:53 Pulse Rate 63 08/26/25 11:53 Respiratory Rate 18 08/26/25 11:53 Blood Pressure 141/66 H 08/26/25 11:53 Pulse Oximetry 100 08/26/25 11:53 Oxygen Delivery Room Air 08/26/25 11:53 Temperature 98 F 08/26/25 11:53 Pulse Rate 63 08/26/25 11:53 Respiratory Rate 18 08/26/25 11:53 Blood Pressure 141/66 H 08/26/25 11:53 Pulse Oximetry 100 08/26/25 11:53 Oxygen Delivery Room Air 08/26/25 11:53 Reviewed MDM - Male Genitourinary MDM Narrative Medical decision making narrative: Urine trace blood, no leukocytes or nitrates. Urine culture pending. Symptoms are not consistent with urinary tract infection, patient reports intermittent dysuria frequency along with penile discharge. Symptoms likely related to STI. Patient believes he was exposed to chlamydia. Will go ahead and treat with doxycycline for known chlamydia exposure. Urine gonorrhea, chlamydia, Trichomonas or pending. Patient would like to wait further treatment until cultures result for urine culture a STD cultures. Discussed physical exam findings. Advised supportive measures and signs/symptoms to go to the ER. Pt is appropriate for outpt treatment and f/u. Differential Diagnosis Differential diagnosis: Likely urinary tract infection, urethritis, epididymitis and other (STI, chlamydia, gonorrhea, Trichomonas) Lab Data Attestation: I reviewed the patient's lab results. Labs: Lab Results 08/26/25 Range/Units 12:14 POC Urine Color Yellow POC Urine Clarity Clear POC Urine pH 8.5 POC Ur Specif Colstrip 1.020 POC Urine Protein Negative (Negative) POC Ur Glucose (UA) Negative (Negative) POC Urine Ketones Negative (Negative) POC Urine Blood Trace (Negative) POC Urine Nitrite Negative (Negative) POC Urine Bilirubin Negative (Negative) POC Urine Urobilinogen 0.2 POC U Leukocyte Esteras Negative (Negative) Critical Care Time Critical Care Time Critical Care Time: No Discharge Plan Discharge Clinical Impression: Discharge from penis, Concern about STD in male without diagnosis Patient Disposition: Home Condition: Stable Instructions: Antibiotic Form, Chlamydia (ED), Safe Sex Practices (ED) Additional Instructions: ?Your urine sample has been sent off to test for gonorrhea, chlamydia, and trichomonas infections. Your urine also be sent off for a culture for urinary tract infection, if it is positive for any bacterial be contacted prescribed appropriate antibiotics. ?These tests can take up to 1-3 days to come back. You Will be notified the results once they have resulted. Please remain abstinent until you know your results or have completed full treatment for an STD. Take doxycycline as directed. Please wear sunscreen for going to be outside while taking doxycycline. Follow-up with PCP in 3-5 days. If your symptoms worsen, you developed fever, abdominal pain, nausea, vomiting, or any other concerns please go to the ER immediately. Patient Language: Wolof Prescriptions: New doxycycline monohydrate 100 mg capsule 100 mg PO BID 7 Days Qty: 14 0RF No Action epinephrine 0.3 mg/0.3 mL auto-injector Follow-up/Referrals: PHYSICIAN,INTERNAL COMBUSTION ENGINE SUBASSEMBLER [Primary Care Provider, Internal Medicine] Time of Disposition: 12:28
[2025-08-26 20:48] LABS: Trichomonas Vag PCR NOT DETECTED (NOT DETECTE)
== END 2025-08-26 12:30 | disposition home or self-care (01) ==
DX: R36.9 Urethral discharge, unspecified (principal); Z20.2 Contact with and (suspected) exposure to infections with a predominantly sexual mode of transmission; J45.909 Unspecified asthma, uncomplicated; F17.210 Nicotine dependence, cigarettes, uncomplicated
CPT/HCPCS: 81003; 87086; 87491; 87591; 87661; 99213; G0463